=== PATIENT | female | born 1980 | race Caucasian/White ===

== ENCOUNTER 2023-05-02 08:50 | Day surgery (SDC) | payer MEDICAID ==
[~2023-05-02 08:50] MED LIST: Sodium Chloride 0.9% 10 ML Syringe FLUSH PRN; Sodium Chloride 0.9% 10 ML Syringe FLUSH SCH
[2023-05-02] MEDS: Lactated Ringers 1,000 ML IV SCH (09:00)
[2023-05-02] MEDS: Scopalamine 1mg/3day Transdermal Patch TRDERM ONE (09:54)
[2023-05-02] MEDS ORDERED: Dexamethasone 4 MG/ML 5 ML MDV ONE (10:12)
[2023-05-02] MEDS ORDERED: ceFAZolin 2 GM Vial ONE (10:12)
[2023-05-02] MEDS ORDERED: Midazolam 1 MG/ML 2 ML SDV ONE (10:12)
[2023-05-02] MEDS ORDERED: Ketorolac 15 MG/ML SDV ONE (10:12)
[2023-05-02] MEDS ORDERED: Ondansetron 4 MG/2 ML SDV ONE (10:12)
[2023-05-02] MEDS ORDERED: Lactated Ringers 1,000 ML ONE (10:12)
[2023-05-02] MEDS ORDERED: Propofol 200 MG/20 ML SDV ONE (10:12)
[2023-05-02] MEDS ORDERED: diphenhydrAMINE 50 MG/ML SDV ONE (10:12)
[2023-05-02] MEDS ORDERED: fentaNYL 250 MCG/5 ML SDV ONE (10:13)
[2023-05-02] MEDS ORDERED: ePHEDrine 50 MG/ML SDV IVPUSH PRN (11:38)
[2023-05-02] MEDS ORDERED: fentaNYL 100 MCG/2 ML SDV IVPUSH PRN (11:38)
[2023-05-02] MEDS ORDERED: diphenhydrAMINE 50 MG/ML SDV IVPUSH PRN (11:38)
[2023-05-02] MEDS ORDERED: Albuterol 0.083% 2.5 MG/3 ML Neb Soln NEB PRN (11:38)
[2023-05-02] MEDS ORDERED: Ondansetron 4 MG/2 ML SDV IVPUSH PRN (11:38)
[2023-05-02] MEDS ORDERED: Midazolam 1 MG/ML 2 ML SDV IVPUSH PRN (11:38)
[2023-05-02] MEDS: EPINEPHrine 1 MG/ML SDV ONE (11:38)
[2023-05-02] MEDS ORDERED: Phenylephrine 1% 10 MG/ML SDV IV PRN (11:38)
[2023-05-02] MEDS: Bupivacaine 0.25% 10 ML SDV ONE (11:50)
[2023-05-02] MEDS: HYDROmorphone 0.5 MG/0.5 ML Syringe IVPUSH PRN (12:30)
[2023-05-02] MEDS ORDERED: traMADol 50 MG Tab PO PRN (12:36)
[2023-05-02] MEDS ORDERED: dexmedeTOMIDine HCl 200 MCG/2 ML SDV ONE (12:43)
[2023-05-02] MEDS ORDERED: EPINEPHrine 1 MG/ML SDV ONE (12:43)
[2023-05-02] MEDS ORDERED: Ropivacaine 0.5% 5 MG/ML 30 ML SDV ONE (12:44)
[2023-05-02] MEDS ORDERED: Lidocaine 1% 2 ML ONE (12:51)
== END 2023-05-02 14:45 | disposition home or self-care (01) ==
LOC: JD.SDS 08:50
PROVIDERS: ATTEND Orthopaedic Surgery
DX: S83.241A Other tear of medial meniscus, current injury, right knee, initial encounter (principal); M94.261 Chondromalacia, right knee; F41.1 Generalized anxiety disorder; F33.1 Major depressive disorder, recurrent, moderate; F17.210 Nicotine dependence, cigarettes, uncomplicated; F17.290 Nicotine dependence, other tobacco product, uncomplicated; Z79.899 Other long term (current) drug therapy; Z88.2 Allergy status to sulfonamides; Z88.8 Allergy status to other drugs, medicaments and biological substances
CPT/HCPCS: 29881; 81025; A9270; J0171; J0690; J1100; J1170; J1200; J1885; J2250; J2405; J2704; J2795; J3010; J3490; J7120; 01400; 64447